=== PATIENT | female | born 1990 | race Caucasian/White ===

== ENCOUNTER 2021-07-07 09:28 | Outpatient (REF) | payer OTHER, SELFPAY ==
[2021-07-07 10:06] LABS: Basophils Absolute Auto 0.1 X10*3/uL (0.0-0.2); Basophils Percent Auto 1.2 % (0-2); Eosinophils Absolute Auto 0.1 X10*3/uL (0.0-0.4); Eosinophils Percent Auto 2.2 % (0-4); Hematocrit 39.7 % (37-47); Hemoglobin 13.2 g/dl (12.0-16.0); Imm Gran Abs Auto 0.02 X10*3/uL (0.00-0.03); Imm Gran Pct Auto 0.3 % (0.0-0.4); Lymphocytes Absolute Auto 2.1 X10*3/uL (1.2-4.9); Lymphocytes Percent Auto 36.6 % (20-40); MANUAL DIFF FLAG NO; Mean Corpuscular HGB Conc 33.2 g/dl (31.0-35.0); Mean Corpuscular Hemoglobin 31.6 pg (27.0-33.0); Mean Platelet Volume 9.3 fL (9.4-12.3); Monocytes Absolute Auto 0.4 X10*3/uL (0.1-1.2); Neutrophils Absolute Auto 3.1 X10*3/uL (2.0-8.3); Neutrophils Percent Auto 52.7 % (45-73); Platelet Count 327 X10*3/uL (160-400); Red Blood Count 4.18 X10*6/uL (4.20-5.50); Red Cell Distribution Width 11.9 % (11.0-16.0); White Blood Count 5.8 X10*3/uL (4.8-10.8)
[2021-07-07 10:36] LABS: Alanine Aminotransferase 19 U/L (0-31); Albumin Level 4.6 g/dL (3.5-5.0); Alkaline Phosphatase 50 U/L (39-117); Anion Gap 11 (12-20); Aspartate Amino Transferase 18 U/L (5-31); Bilirubin Total 0.6 mg/dL (0.0-1.0); Blood Urea Nitrogen 13 mg/dL (9-16); Calcium 9.6 mg/dL (8.4-10.2); Carbon Dioxide 27 mmol/L (22-29); Chloride 104 mmol/L (96-108); Cholesterol 190 mg/dL; Estimated Glomerular Filt Rate > 60; Glucose Fasting 89 mg/dL (60-99); HDL Cholesterol 63 mg/dL; LDL Cholesterol Calculated 116 mg/dl; Potassium 4.1 mmol/L (3.3-5.1); Sodium 138 mmol/L (135-145); Total Protein 6.8 g/dL (6.5-8.0); Triglycerides 56 mg/dL
== END 2021-07-07 09:29 | disposition home or self-care (01) ==
LOC: HO.10HDL 09:28
PROVIDERS: Visit Provider Internal Medicine
DX: Z00.00 Encounter for general adult medical examination without abnormal findings (principal); Z13.31 Encounter for screening for depression; J45.909 Unspecified asthma, uncomplicated
CPT/HCPCS: 36415; 80053; 80061; 85025

== ENCOUNTER 2021-10-06 12:20 | Outpatient (REF) | payer OTHER, SELFPAY ==
[2021-10-06 14:31] LABS: COVID-19 Test Positive (Negative)
== END 2021-10-06 12:21 | disposition home or self-care (01) ==
LOC: HO.LAB 12:20
PROVIDERS: Visit Provider Internal Medicine
DX: Z20.822 Contact with and (suspected) exposure to COVID-19 (principal)
CPT/HCPCS: 87635; C9803

== ENCOUNTER 2023-05-26 07:27 | Emergency (ER) | payer OTHER, SELFPAY ==
--- NOTE | ~2023-05-26 | XR_ITS ---
EXAMINATION: XR CHEST CLINICAL INFORMATION: Cough for 3 days COMPARISON: November 2013. TECHNIQUE: Frontal view of the chest was obtained. Patient partially rotated to the left. FINDINGS: No dominant airspace consolidation or pleural effusion. The hilar regions are unremarkable. No evidence for vascular congestion. XR/XR chest 1V IMPRESSION: No evidence for acute process.
[2023-05-26 07:53] VITALS: BP 108/78; PULSE 99; RESP 17; TEMP 37.2; O2SAT 99; BMI 28.9
--- NOTE | 2023-05-26 08:01 | PC.NURSE ---
A/O X 4 SPEPAKS IN FULL SENTENCES.LUNGS - CTA. MD/MLP TO EVAL
[2023-05-26 08:50] VITALS: BP 122/73; PULSE 90; RESP 18; TEMP 37.2; O2SAT 98
--- NOTE | 2023-05-26 09:09 | ED.URI ---
HPI - URI/Sore Throat General Chief Complaint: Upper Respiratory Symptoms Stated Complaint: Cough Flu Like Symptoms Time Seen by Provider: 05/26/23 07:43 Source: patient Mode of arrival: ambulatory Limitations: no limitations History of Present Illness HPI Narrative: 33-year-old female history of asthma presents the emergency department complaints of fatigue, malaise, productive cough for the past 3 days, patient report that she also has a diffuse headache throughout, feels like her typical without vision changes or dizziness. Patient states that she has chest discomfort only with cough, not at rest. No known sick contacts. Denies fevers, chills, shortness of breath, nausea, vomiting Related Data Previous Rx's Medication Instructions Recorded albuterol sulfate 90 mcg/actuation 2 inh inhalation Q4-6H PRN 05/26/23 breath activated powder inhaler shortness of breath or wheezing #1 ea Allergies Allergy/AdvReac Type Severity Reaction Status Date / Time beeswax [BEESWAX] Allergy Mild SWELLING Unverified 06/18/20 16:22 bee pollen [BEE STINGS] Allergy Unknown SWELLING Unverified 06/18/20 16:22 Review of Systems Review of Systems: Constitutional : No Weight loss, No Fever, No Chills, + Fatigue, + Malaise ENT/Mouth : No sore throat, No Rhinorrhea Eyes: No Eye Pain, No Swelling, No Redness Cardiovascular : No Chest Pain, No SOB, No Dyspnea on Exertion, No Orthopnea, No Edema, No Palpitations Respiratory : + Cough, No Sputum, No Wheezing Gastrointestinal : No Nausea, No Vomiting, No Diarrhea, No Constipation, No abdominal Pain, No Hematochezia, No Melena Genitourinary : No Dysuria, No Urinary Frequency, No Hematuria, Musculoskeletal : No joint pain, No Myalgias, No Joint Swelling Skin : No Skin Lesions, No rash Neuro : No Weakness, No Numbness, No Dizziness, No Headache Psych : No Anxiety/Panic, No Depression All other systems reviewed and are negative Yes all other systems are reviewed and are negative [facility] Past Medical History Attestation statement: The following information was validated with the patient. Source: old records reviewed and nursing notes reviewed Social History Social History Alcohol intake: never Smoked in Last 30 Days: No Use of substances other than those prescribed or required for medical reasons: No Advance Directives: No Patient : Yes Physical Exam Vital Signs: Vital Signs: Last Vital Signs Temp 98.2 F 05/26/23 10:39 Pulse 81 05/26/23 10:39 Resp 14 05/26/23 10:39 BP 107/85 05/26/23 10:39 Pulse Ox 98 05/26/23 10:39 O2 Del Method Room Air 05/26/23 10:39 BMI result Body Mass Index 28.9 vss Appearance: Alert.? Oriented X3.? No acute distress.? Head: Normocephalic, atraumatic, no step-offs or deformities Eyes: Pupils equal, round and reactive to light.? Neck: Normal inspection.? Neck supple.? CVS: Normal heart rate and rhythm.? Pulses normal.? Respiratory: No respiratory distress.? Breath sounds normal.? Abdomen: Soft and nontender.? Skin: Skin warm and dry.? Normal skin color.? Normal skin turgor.? Extremities: No lower extremity edema.? No calf ttp. 5/5 strength to bilateral upper and lower extremities Neuro: Oriented X 3.? No motor deficit.? No sensory deficit. CN 2-12 intact Course Reevaluation(s) Reevaluation #1: Patient positive for COVID. Chest x-ray unremarkable. At this time patient to be discharged home with supportive measures will give albuterol inhaler peer Educated patient on diagnosis and treatment plan, answered all question, patient verbalizes understanding. At this time patient will be discharged home, advised to return with new or worsening symptoms. Educated on worrisome signs and symptoms and when to return. At this time I feel comfortable discharge home. Time: 12:01 Medications Administered Discontinued Medications Generic Name Dose Route Start Last Admin Trade Name Johanq PRN Reason Stop Dose Admin Acetaminophen 650 mg 05/26/23 09:13 05/26/23 09:32 Acetaminophen 325 Mg Tablet PO 05/26/23 09:14 650 mg ONCE ONE Administration Medical Decision Making Medical Decision Making [facility] Narrative: [id number] 33-year-old female presents with fatigue, malaise in productive cough x3 days. No known sick contacts Physical exam benign. This is likely viral illness versus bronchitis. Unlikely pneumonia, PE (perc negative), chest discomfort likely secondary to coughing I do not suspect ACS, pericarditis, endocarditis or myocarditis no signs of dissection. Headache likely typical headache or secondary to viral illness. No long meningeal signs unlikely encephalitis, meningitis, intracranial hemorrhage, stroke or posterior stroke. Plan viral testing and x-ray. Will give Tylenol for headache Differential Diagnosis Differential Diagnoses: The differential diagnosis associated with the presentation includes This is likely viral illness versus bronchitis. Unlikely pneumonia, PE (perc negative), chest discomfort likely secondary to coughing I do not suspect ACS, pericarditis, endocarditis or myocarditis no signs of dissection. Headache likely typical headache or secondary to viral illness. No long meningeal signs unlikely encephalitis, meningitis, intracranial hemorrhage, stroke or posterior stroke. Admission/Observation Consideration of admission/observation: Escalation of care including admission/observation considered Lab Data MDM Lab Attestation statement: I reviewed the patient's lab results. Labs: Lab Results 05/26/23 Range/Units 07:54 Influenza Type A (PCR) NEGATIVE (Negative) Influenza Type B (PCR) NEGATIVE (Negative) RSV RNA Qual (PCR) NEGATIVE (Negative) SARS-CoV-2 RNA (RT-PCR) POSITIVE A (Negative) Independent Interpretation I performed an independent interpretation of an: Plain X-Ray Core Measures AMI core measures followed: Yes Measure exclusions: not indicated Discharge Plan Discharge Clinical Impression: COVID-19 Patient Disposition: Home, Self-Care Additional Instructions: Take your medications as prescribed. If you were prescribed antibiotics today, it is important that you take your medication to their entirety, do not skip any doses, do not finish them early. Today you tested positive for COVID-19. Take Ibuprofen or Tylenol as needed for fevers or body aches. Quarantine for 5 days and ensure you wear a mask. After 5 days you should wear a mask for 5 days after that. Practice social distancing and good hand hygiene. Drink plenty of fluids. Follow-up with your primary care provider this week. Return to the emergency department with new or worsening symptoms. In case of emergency call 911 ' Inform your OBGN of this. You can purchase a pulse oximeter from your local pharmacy or grocery store, and monitor your oxygen saturation if it goes below 94% you should return to the emergency department for further evaluation. XR/XR chest 1V IMPRESSION: No evidence for acute process. Prescriptions: New albuterol sulfate 90 mcg/actuation aerosol powdr breath activated 2 inh inhalation Q4-6H PRN (Reason: shortness of breath or wheezing) Qty: 1 0RF Referrals: Goldie Martin MD [Primary Care Provider] - 2 days Stand Alone Forms: Work/School Release
[2023-05-26] MEDS: Acetaminophen 325 MG TABLET 650 MG PO (09:32)
[2023-05-26 10:39] VITALS: BP 107/85; PULSE 81; RESP 14; TEMP 36.8; O2SAT 98
[2023-05-26 11:57] LABS: Influenza A PCR NEGATIVE (Negative); Influenza B PCR NEGATIVE (Negative); Resp Syncy Virus RNA Qual PCR NEGATIVE (Negative); SARS COV2 PCR INHOUSE POSITIVE (Negative)
== END 2023-05-26 12:10 | disposition home or self-care (01) ==
PROVIDERS: Physician Assistant; Emergency Provider Emergency Medicine Emergency Medical Services; PCP Internal Medicine
DX: U07.1 COVID-19 (principal); R53.81 Other malaise; R05.9 Cough, unspecified
CPT/HCPCS: 0241U; 71045; 99283; 99284

== ENCOUNTER 2023-09-20 10:16 | Outpatient (AMB) | payer OTHER, SELFPAY ==
--- NOTE | 2023-09-20 11:22 | AM.OFFWIN_ITS ---
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 She denies any fever/chills. Has a productive cough but denies any resp distress. 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 Has a history of asthma and requests a refill for her albuterol inhaler. [facility] Social History Alcohol intake: never Patient Tobacco Use Status: Never used Tobacco Review of Systems Const All systems reviewed & are unremarkable except as noted in HPI and below Physical Exam Vital Signs: Last Vital Signs Temp 97.3 F 09/20/23 11:23 Pulse 95 09/20/23 11:23 BP 114/70 09/20/23 11:23 Pulse Ox 99 09/20/23 11:23 Oxygen Delivery Method Room Air 09/20/23 11:23 BMI result Body Mass Index 28.5 Const General: cooperative and no acute distress HEENT Head: Yes normal to inspection Ears: hearing grossly normal bilaterally General nose exam: Normal external nose present Face and sinus: Yes normal facial exam Mouth: Normal oral and palatal mucosa present Throat: Yes posterior oropharynx normal Resp Effort & Inspection: normal respiratory effort Auscultation: clear to auscultation bilaterally Cardio Palpation: normal PMI Rate: regular rate Rhythm: regular rhythm Skin General skin exam: no rashes or lesions noted Extrem General: Yes capillary refill normal and Yes no clubbing, cyanosis or edema Psych Mental Status: mental status grossly normal Results AMB Rapid Strep AMB Rapid Strep Negative Last Edit by Mary Lopez CMA on 09/20/23 11:54 AMB Rapid Strep AMB Rapid Strep Negative Last Edit by Mary Lopez CMA on 09/20/23 12:35 Results Reviewed Results Reviewed: Laboratory Last Values Strep Scn Rapid Clinic Negative 09/20/23 11:45 Assessment & Plan Assessment & Plan (1) Upper respiratory infection: Code(s): J06.9 - Acute upper respiratory infection, unspecified Qualifiers: URI type: unspecified viral URI Qualified Code(s): J06.9 - Acute upper respiratory infection, unspecified Plan: Symptoms consistent with viral URI. Rapid strep was negative. Advised conservative measures with Tylenol/Motrin, Mucinex, rest, hydration for symptomatic treatment. She declines any viral testing. I will refill her albuterol inhaler for prn use and also precribed Mucinex per patient' request. Work note provided. If she develops worsening symptoms or does not improve with measures discussed, she can return to the clinic for further evaluation. She agrees to plan. Orders: Orders AMB Rapid Strep Screen Today Z13.9 - Encounter for screening, unspecified AMB Rapid Strep Screen Today Z13.9 - Encounter for screening, unspecified Medications: New guaifenesin ER (Mucinex) 600 mg PO Q12H PRN 14 tabs 0RF congestion J06.9 - Acute upper respiratory infection, unspecified Refilled albuterol sulfate 90 mcg/actuation 2 inhalations inhalation Q4-6H PRN 1 ea 0RF shortness of breath or wheezing Coding Level of Care Code Est Pt Level 3 (16171) Diagnoses Viral upper respiratory tract infection J06.9 URI type: unspecified viral URI
[2023-09-20 11:23] VITALS: BP 114/70; PULSE 95; TEMP 36.3; O2SAT 99; BMI 28.5
== END 2023-09-20 13:01 | disposition home or self-care (01) ==
PROVIDERS: PCP Internal Medicine; Visit Provider Nurse Practitioner Family
DX: J06.9 Acute upper respiratory infection, unspecified (principal); J02.9 Acute pharyngitis, unspecified
CPT/HCPCS: 87880; 99213

== ENCOUNTER 2024-02-12 10:46 | Outpatient (AMB) | payer OTHER, SELFPAY ==
--- NOTE | 2024-02-12 11:10 | A.OFFPC_ITS ---
Vital Signs 02/12/24 11:13 02/12/24 11:42 Height 5 ft 3.6 in Weight 155 lb BMI 26.9 BP 128/90 H 120/86 Blood Pressure Location Lt brachial Rt brachial Position Sitting Sitting Pulse 86 Pulse Source Pulse Oximeter Pulse Oximetry (%) 97 Oxygen Delivery Method Room Air Intake Visit Reasons: Est care/Requesting PE Intake Note: Patient here to establish care. pt would like to talk about cyst on breast that have been drained in the past, she states they are painful. Accompanied by: Self / Same As Patient Allergies beeswax [BEESWAX] Allergy (Mild, Verified 02/12/24 12:01) SWELLING bee pollen [BEE STINGS] Allergy (Unknown, Verified 02/12/24 12:01) SWELLING Medication List - Last Reconciled 02/12/24 by LOUIE Peña albuterol sulfate 90 mcg/actuation (Ventolin HFA) 2 puffs inhalation Q4-6H PRN albuterol sulfate 90 mcg/actuation 2 inhalations inhalation Q4-6H PRN Tobacco use date assessed: 02/12/24 Dental Screening Dental Screen Date: 02/12/24 Did you have a dental visit in the last 12 months?: Yes Did you have a dental problem in the last 6 months where you did not have access to dental care?: No Was dental information given to patient?: Patient has dentist HPI Est care/Requesting PE HPI Details New pt is here for a PE. Will order labs. Pt does not have a tourism radio presenter, will refer. Pt reports multiple fatty cystic lesions to her breasts (sometimes tender). Will have pt mention this to tourism radio presenter (mother has same condition). Pt reports multiple moles ranging is size/color/shape. She also has very dry skin. Will refer to derm. [facility] Medical History Asthma Family History Paternal Grandmother Colon cancer Social History Housing: House Alcohol intake: never Patient Tobacco Use Status: Never used Tobacco e-Cigarette/Vaping Use: Never Used Current occupational status: employed Current occupational exposures/hazards: No Cognitive needs: No Hearing needs: No Vision needs: No Questionnaire PHQ-9 Over the last 2 weeks, how often have you been bothered by any of the following problems? 1. Little interest or pleasure in doing things: not at all 2. Feeling down, depressed, or hopeless: not at all 3. Trouble falling or staying asleep, or sleeping too much: not at all 4. Feeling tired or having little energy: not at all 5. Poor appetite or overeating: not at all 6. Feeling bad about yourself - or that you are a failure or have let yourself or your family down: not at all 7. Trouble concentrating on things, such as reading the newspaper or watching television: not at all 8. Moving or speaking so slowly that other people could have noticed. Or the opposite - being so fidgety or restless that you have been moving around a lot more than usual: not at all 9. Thoughts that you would be better off or of hurting yourself in some way: not at all Total score: 0 Depression Screening Interpretation: Negative Depression Screening Done: Yes 15245 - PHQ-9 Billing: Yes Source: Developed by Drs. Behzad Wells, Effie Baer, Tr Cosby and colleagues, with an educational aydee from [employer]. Thrive Questionnaire Date Thrive assessed: 02/12/24 I am a: Patient What is your living situation today?: I have a steady place to live Within the past 12 months, did the food you bought not last and you didn't have the money to get more?: Never true Within the past 12 months, did you worry whether your food would run out before you got money to buy more?: Never true Do you have trouble paying for medicines?: No Do you have trouble getting transportation to medical appointments?: No Do you have trouble paying your heating and electricity bill?: No Do you have trouble taking care of your child, family member or friend?: No Do you have trouble with day-to-day activities such as bathing, preparing meals, shopping, managing finances, etc.?: No Are you currently unemployed and looking for a job?: No Are you interested in more education?: No Currently or been in a relationship where the following occur: I choose not to answer this question THRIVE Score: 0 VERNON-7 AMB Questionnaire VERNON-7 Date VERNON - 7 assessed: 02/12/24 Feeling nervous, anxious, or on edge: 0 = Not at all Not being able to stop or control worryin = Not at all Worrying too much about different things: 1 = Several days Trouble relaxin = Not at all Being so restless that it is hard to sit still: 0 = Not at all Becoming easily annoyed or irritable: 1 = Several days Feeling afraid as if something awful might happen: 0 = Not at all Total VERNON-7 score (0-4 normal; 5-9 mild; 10-14 moderate; 15-21 severe): 2 Source: Developed by Drs. Behzad Wells, Effie Baer, Tr Cosby and colleagues, with an educational aydee from [employer]. VERNON-7 Assessment Billing VERNON-7 Assessment Tool: VERNON-7 Assessment 47097 Review of Systems Const Denies chills and Denies fever(s) Eyes Denies blurry vision ENT Denies vertigo, Denies dizziness and Denies sore throat Card Denies chest pain at rest, Denies chest pain with activity, Denies diaphoresis, Denies dyspnea and Denies dyspnea on exertion Resp Denies cough, Denies dyspnea, Denies dyspnea on exertion and Denies wheezing GI Denies abdominal pain, Denies melena, Denies hematochezia, Denies constipation, Denies diarrhea and Denies loose stools Denies hematuria Musc Denies numbness and Denies tingling Skin/Breast Denies lesions Neuro Denies vertigo, Denies dizziness, Denies numbness and Denies tingling Psych Denies anxiety, Denies depression, Denies homicidal ideation, Denies suicidal ideation and Denies other (substance abuse) Aller/Immun Denies wheezing Physical exam (Primary Care) Vital Signs: Last Vital Signs Pulse 86 02/12/24 11:13 BP 128/90 H 02/12/24 11:13 Pulse Ox 97 02/12/24 11:13 Oxygen Delivery Method Room Air 02/12/24 11:13 BMI result Body Mass Index 26.9 Tobacco/Smoking Status: Tobacco use Status Tobacco use date assessed 02/12/24 02/12/24 11:21 Patient Tobacco Use Status Never used Tobacco 02/12/24 11:11 e-Cigarette/Vaping Use Never Used 02/12/24 11:21 PHQ-9: PHQ-9 Score PHQ-9: Total score 0 02/12/24 11:32 Depression Screening Interpretation: Negative Thrive Assessment: Date of Thrive Assessment Date Thrive assessed 02/12/24 02/12/24 11:30 Currently or been in a relationship where the following occur: I choose not to answer this question Const General: cooperative Nutritional Appearance: well nourished Orientation/consciousness: patient oriented x3 HENMT Head: Yes normal to inspection, Yes normocephalic and Yes atraumatic Ears: TM's normal bilaterally Eyes General: appearance normal, both eyes and all related structures Alignment and Position: alignment normal and position normal Neck Neck: Yes normal visual inspection and Yes no lymphadenopathy Thyroid: Thyroid normal Resp Effort & Inspection: normal respiratory effort Auscultation: clear to auscultation bilaterally Cardio Rate: regular rate Rhythm: regular rhythm Heart sounds: S1 normal heart sound present, S2 normal heart sound present and no murmurs GI Palpation (GI): Soft to palpation and nontender Auscultation: normal bowel sounds Skin Other: very dry skin throughout, multiple moles ranging in color/size/shape mostly to upper torso Rashes: no rashes Neuro General: patient oriented x3, moves all extremities, no focal motor deficits and deep tendon reflexes 2+ bilaterally Romberg Test: Negative Psych Appearance: grossly normal Mental Status: mental status grossly normal Speech and movement: Normal speech and movement present Affect: normal affect Attitude: cooperative Thought process: Normal thought process present Thought content: Normal thought content present Insight: Good insight present (Psych) Judgement: Good judgement present (Psych) Assessment and Plan Assessment & Plan (1) Physical exam: Code(s): Z00.00 - Encounter for general adult medical examination without abnormal findings Plan: Labs ordered (2) Screening for cervical cancer: Code(s): Z12.4 - Encounter for screening for malignant neoplasm of cervix Plan: Referred to tourism radio presenter (3) Skin lesions: Code(s): L98.9 - Disorder of the skin and subcutaneous tissue, unspecified Plan: Referred to derm (4) Dry skin dermatitis: Code(s): L85.3 - Xerosis cutis Plan: Referred to derm (5) Cystic breast: Code(s): N60.19 - Diffuse cystic mastopathy of unspecified breast Plan: Referred to tourism radio presenter (6) Immunizations incomplete: Code(s): Z28.39 - Other underimmunization status Plan The patient agreed to the use of a lpn or medical assistant for this encounter. Scribed for DENZEL Mcintosh- by Rosalinda Tracy lpn or medical assistant, on 02/12/2024 at 11:30 EST. Orders: Orders Rubella IgG Antibody Today Z.39 - Other underimmunization status Rubeola IgG (Measles) Today Z28.39 - Other underimmunization status Complete Blood Count Auto Diff Today Z00.00 - Encounter for general adult medical examination without abnormal findings Comprehensive [place]. Panel Fast Today Z00.00 - Encounter for general adult medical examination without abnormal findings TSH reflex Free T4 Today Z00.00 - Encounter for general adult medical examination without abnormal findings UA CC w/rflx Micro + Cult Today Z00.00 - Encounter for general adult medical examination without abnormal findings Lipid Panel Today Z00.00 - Encounter for general adult medical examination without abnormal findings Mumps Virus IgG Antibody Today Z28.39 - Other underimmunization status Referrals [employer]PER Referral N60.19 - Diffuse cystic mastopathy of unspecified breast, Z12.4 - Encounter for screening for malignant neoplasm of cervix Dermatology Referral L85.3 - Xerosis cutis, L98.9 - Disorder of the skin and subcutaneous tissue, unspecified Coding Level of Care Code New Pt Prev Care 18-39yr([id number] Diagnoses Physical exam Z00.00 Screening for cervical cancer Z12.4 Skin lesions L98.9 Dry skin dermatitis L85.3 Cystic breast N60.19 Immunizations incomplete Additional Codes VERNON-7 Assessment Billing - VERNON-7 Assessment Tool: VERNON-7 Assessment [id number] ([id number])
[2024-02-12 11:13] VITALS: BP 128/90; PULSE 86; O2SAT 97; BMI 26.9
[2024-02-12 11:42] VITALS: BP 120/86
== END 2024-02-12 12:36 | disposition home or self-care (01) ==
PROVIDERS: PCP Nurse Practitioner Family; Visit Provider Nurse Practitioner Family
DX: Z00.00 Encounter for general adult medical examination without abnormal findings (principal); Z12.4 Encounter for screening for malignant neoplasm of cervix; L98.9 Disorder of the skin and subcutaneous tissue, unspecified; L85.3 Xerosis cutis; N60.19 Diffuse cystic mastopathy of unspecified breast; Z28.39 Other underimmunization status
CPT/HCPCS: 99385

== ENCOUNTER 2024-02-12 11:50 | Outpatient (REF) | payer OTHER, SELFPAY ==
[2024-02-12 13:27] LABS: MANUAL DIFF FLAG NO
[2024-02-12 13:52] LABS: Basophils Absolute Auto 0.1 X10*3/uL (0.0-0.2); Eosinophils Percent Auto 0.6 % (0-4); Hematocrit 43.3 % (37.0-47.0); Hemoglobin 14.1 g/dl (12.0-16.0); Imm Gran Abs Auto 0.03 X10*3/uL (0.00-0.03); Imm Gran Pct Auto 0.4 % (0.0-0.4); Lymphocytes Absolute Auto 1.7 X10*3/uL (1.2-4.9); Lymphocytes Percent Auto 23.8 % (20-40); Mean Corpuscular HGB Conc 32.6 g/dl (31.0-35.0); Mean Corpuscular Hemoglobin 31.1 pg (27.0-33.0); Mean Corpuscular Volume 95.6 fL (80.0-98.0); Mean Platelet Volume 9.9 fL (9.4-12.3); Monocytes Absolute Auto 0.5 X10*3/uL (0.1-1.2); Monocytes Percent Auto 6.3 % (2-11); Neutrophils Absolute Auto 4.9 x10*3/uL (2.0-8.3); Neutrophils Percent Auto 67.9 % (45-73); Platelet Count 364 X10*3/uL (160-400); Red Blood Count 4.53 X10*6/uL (4.20-5.50); White Blood Count 7.1 X10*3/uL (4.8-10.8)
[2024-02-12 14:08] LABS: Appearance Urine Clear; Color Urine Yellow; Glucose Urine UA Negative (Negative); Leukocyte Esterase Urine Negative (Negative); Nitrite Urine Negative (Negative); Specific Gravity - Urine 1.015 (1.005-1.025); UMIC TRIGGER UACC YES; Urine Blood Small (1+) (Negative); Urine Ketones Negative (Negative); Urine Protein Negative (Neg-Trace)
[2024-02-12 14:25] LABS: Alanine Aminotransferase 13 U/L (0-31); Alkaline Phosphatase 58 U/L (39-117); Anion Gap 15 (12-20); Aspartate Amino Transferase 16 U/L (5-31); Bacteria Urine 1+ (None Seen); Bilirubin Total 0.7 mg/dL (0.0-1.0); Blood Urea Nitrogen 13 mg/dL (9-16); Calcium 10.2 mg/dL (8.4-10.2); Carbon Dioxide 25 mmol/L (22-29); Chloride 104 mmol/L (96-108); Cholesterol 211 mg/dL (<200); Estimated Glomerular Filt Rate > 60; Glucose Fasting 86 mg/dL (60-99); HDL Cholesterol 60 mg/dL (>40); Hyaline Casts Urine 0-2 /LPF (0-2); LDL Cholesterol Calculated 133 mg/dL (<100); Potassium 3.8 mmol/L (3.3-5.1); Sodium 140 mmol/L (135-145); Total Protein 8.2 g/dL (6.5-8.0); Triglycerides 93 mg/dL (<150); WBC Urine 0-5 /HPF (0-5)
[2024-02-12 14:43] LABS: TSH reflex Free T4 1.61 uIU/mL (0.32-4.0)
[2024-02-13 20:53] LABS: Rubeola IgG (Measles) >300.00 AU/mL
[2024-02-13 22:04] LABS: Rubella IgG Antibody 3.71 Index
== END 2024-02-12 11:51 | disposition home or self-care (01) ==
LOC: HO.HMGCLDS 11:50
PROVIDERS: PCP Nurse Practitioner Family; Visit Provider Nurse Practitioner Family
DX: Z00.00 Encounter for general adult medical examination without abnormal findings (principal); Z28.39 Other underimmunization status
CPT/HCPCS: 36415; 80053; 80061; 81001; 81003; 84443; 85025; 86735; 86762; 86765